=== PATIENT | female | born 1990 | race Hispanic/Latino ===

== ENCOUNTER 2018-09-19 18:37 | Inpatient (IN) | payer BC, OTHER ==
[2018-09-19] MEDS ORDERED: Ondansetron PF 4 MG/2 ML Vial IVP PRN (18:58)
[2018-09-19] MEDS ORDERED: HYDROcodone/Acetaminophen 5/325 mg Tablet PO PRN (18:58)
[2018-09-19] MEDS ORDERED: Ibuprofen 800 MG TAB PO PRN (18:58)
[2018-09-19] MEDS ORDERED: Misoprostol 200 MCG TAB PR PRN (18:58)
[2018-09-19] MEDS ORDERED: Diphenoxylate HCl/Atropine Tablet PO PRN (18:58)
[2018-09-19] MEDS ORDERED: Promethazine HCl 25 MG/ML VIAL IM PRN (18:58)
[2018-09-19] MEDS ORDERED: Carboprost 250 MCG/ML AMP IM PRN (18:58)
[2018-09-19] MEDS ORDERED: Butorphanol Tartrate 1 MG/ML VIAL SLOW IVP PRN (18:58)
[2018-09-19] MEDS ORDERED: Lidocaine 1% (PF) 30 ML VIAL SC PRN (18:58)
[2018-09-19] MEDS ORDERED: Penicillin G Potassium 5 MILL.UNITS in Sodium Chloride 0.9% 100 ML IVPB SCH (19:00)
[2018-09-19] MEDS ORDERED: NS w/ Oxytocin 10 units 500 ML IV SCH ×2 (19:00)
[2018-09-19 19:30] VITALS: BMI 33.5
[2018-09-19] MEDS: Lactated Ringer's 1,000 ML IV SCH ×2 (19:40→23:42)
[2018-09-19 20:05] LABS: Hemoglobin 13.2 g/dL (12.0-16.0); Mean Corpuscular HGB CONC 32.2 g/dL (32.0-36.0); Mean Corpuscular Hemoglobin 29.6 pg (27.0-31.0); Mean Corpuscular Volume 91.8 fL (78.0-98.0); Platelet Count 228 thou/uL (130-400); RBC Distribution Width 12.3 % (11.5-14.5); Red Blood Cell (RBC) Count 4.47 mill/uL (4.20-5.40); White Blood Cell (WBC) Count 11.7 thou/uL (4.8-10.8)
[2018-09-19 20:42] LABS: Syphilis Antibody Nonreactive (Nonreactive); Syphilis Antibody Index 0.03 S/CO (<1.00 Non-Reactive)
[2018-09-19] MEDS ORDERED: Fentanyl 4 mcg/Bup 0.1% Cadd 100 ML ONE (22:12)
[2018-09-19] MEDS ORDERED: Lidocaine 1.5%/Epinephrine 1:200,000 5 ML AMPUL IJ ONE (22:22)
[2018-09-19 23:11] LABS: HBSAg Index 0.16 S/CO (0-0.99); Hep B Surf Ag Non-Reactive S/CO (NonReactive)
[2018-09-19] MEDS: Penicillin G 2.5 MILL.units 2.5 MILL.UNITS in Premix Bag 1 BAG IVPB SCH ×2 (23:37→23:42)
--- NOTE | 2018-09-19 23:41 | PDOC.LDPN ---
Labor & Delivery Progress Note - Subjective Subjective: comfortable - Objective Vital signs reviewed and normal: yes General: NAD, resting Uterine fundus: non tender Dilation: 4 Effacement: 50% Station: -2 FHT: category 1 AROM: clear fluid (copious) Plan: continue plan of care
[2018-09-20] MEDS ORDERED: Lidocaine 1.5%/Epinephrine 1:200,000 5 ML AMPUL IJ ONE (03:16)
[2018-09-20] MEDS: Penicillin G 2.5 MILL.units 2.5 MILL.UNITS in Premix Bag 1 BAG IVPB SCH (04:00)
[2018-09-20] MEDS: Lactated Ringer's 1,000 ML IV SCH (05:10)
[2018-09-20] MEDS: NS / Oxytocin 40 units/1000ml 1,000 ML IV PRN ×2 (05:45→06:49)
[2018-09-20] MEDS ORDERED: NS / Oxytocin 40 units/1000ml 1,000 ML IV SCH (06:50)
[2018-09-20] MEDS ORDERED: Benzocaine/Menthol 20-0.5% 60 ML CAN TOP PRN (06:50)
[2018-09-20] MEDS ORDERED: Lanolin Ointment 7 GM TUBE TOP PRN (06:50)
[2018-09-20] MEDS ORDERED: Ondansetron PF 4 MG/2 ML Vial IVP PRN (06:50)
[2018-09-20] MEDS ORDERED: Bisacodyl 10 MG SUPP PR PRN (06:50)
[2018-09-20] MEDS ORDERED: Milk Of Magnesia 30 ML UDCUP PO PRN (06:50)
[2018-09-20] MEDS: Prenatal Vitamin 1 TAB PO SCH ×2 (11:30→11:31)
[2018-09-20] MEDS: HYDROcodone/Acetaminophen 5/325 mg Tablet PO PRN ×3 (11:30→21:26)
[2018-09-20] MEDS: Ibuprofen 800 MG TAB PO SCH ×2 (15:24→23:25)
[2018-09-20] MEDS: Ferrous Sulfate 325 MG TAB PO SCH ×2 (17:11→17:14)
[2018-09-20] MEDS: Docusate Calcium (SURFAK) 240 MG CAP PO SCH ×2 (17:14→21:25)
[2018-09-21] MEDS: HYDROcodone/Acetaminophen 5/325 mg Tablet PO PRN ×3 (05:53→22:16)
[2018-09-21 06:00] LABS: Hemoglobin 11.7 g/dL (12.0-16.0); Mean Corpuscular HGB CONC 31.5 g/dL (32.0-36.0); Mean Corpuscular Hemoglobin 29.2 pg (27.0-31.0); Mean Corpuscular Volume 92.9 fL (78.0-98.0); Mean Platelet Volume 9.6 fL (7.4-10.4); Platelet Count 179 thou/uL (130-400); RBC Distribution Width 12.3 % (11.5-14.5); Red Blood Cell (RBC) Count 3.99 mill/uL (4.20-5.40); White Blood Cell (WBC) Count 13.4 thou/uL (4.8-10.8)
[2018-09-21] MEDS: Docusate Calcium (SURFAK) 240 MG CAP PO SCH ×2 (10:24→22:15)
[2018-09-21] MEDS: Prenatal Vitamin 1 TAB PO SCH (10:24)
[2018-09-21] MEDS: Ibuprofen 800 MG TAB PO SCH ×2 (10:26→19:10)
[2018-09-21] MEDS: Ferrous Sulfate 325 MG TAB PO SCH ×2 (10:26→18:10)
[2018-09-22] MEDS: Ibuprofen 800 MG TAB PO SCH ×3 (05:19→13:26)
[2018-09-22] MEDS: HYDROcodone/Acetaminophen 5/325 mg Tablet PO PRN ×2 (05:20→16:48)
[2018-09-22] MEDS: Ferrous Sulfate 325 MG TAB PO SCH ×2 (08:15→13:30)
[2018-09-22] MEDS: Docusate Calcium (SURFAK) 240 MG CAP PO SCH (08:15)
[2018-09-22] MEDS: Prenatal Vitamin 1 TAB PO SCH (08:15)
[2018-09-22 08:38] VITALS: BP 142/74; TEMP 97.8
== END 2018-09-22 17:35 | disposition home or self-care (01) | DRG 807 ==
LOC: L&D/OP 18:37 → L&D 19:11 → 3SW 09-20 17:03
PROVIDERS: ADMIT Family Medicine; ATTEND Family Medicine
PROC: 10E0XZZ Delivery of Products of Conception, External Approach (ICD-10-PCS; principal; 2018-09-19)
PROC: 4A0HXCZ Measurement of Products of Conception, Cardiac Rate, External Approach (ICD-10-PCS; 2018-09-19)
PROC: 3E033VJ Introduction of Other Hormone into Peripheral Vein, Percutaneous Approach (ICD-10-PCS; 2018-09-19)
DX: O14.94 Unspecified pre-eclampsia, complicating childbirth (principal); Z37.0 Single live birth; Z3A.37 37 weeks gestation of pregnancy
CPT/HCPCS: 36415; 84156; 85027; 86780; 86850; 86900; 86901; 87340; J0595; J2001; J2540; J3490; J7050